=== PATIENT | female | born 1975 | race Caucasian/White ===

== ENCOUNTER → 2016-11-13 | Outpatient (CLI) | payer BC ==
--- NOTE | 2016-11-13 13:34 | MAMMOGRAPHY REPORT ---
THIS REPORT HAS BEEN AMENDED. BILATERAL DIGITAL SCREENING MAMMOGRAM TOMOSYNTHESIS WITH CAD: 11/13/2016 CLINICAL HISTORY: Routine screening. Patient has no complaints. TECHNIQUE: Bilateral breast tomosynthesis in addition to standard 2D mammography was performed. Curr ent study was also evaluated with a Computer Aided Detection (CAD) system. COMPARISON: No prior exams were available for comparison. BREAST COMPOSITION: The tissue of both breasts is heterogeneously dense, which may obscure small ma sses. FINDINGS: No suspicious mass, architectural distortion or cluster of microcalcifications is seen. IMPRESSION: ACR BI-RADS CATEGORY 1: NEGATIVE There is no mammographic evidence of malignancy. A 1 year screening mammogram is recommended. The p atient will receive written notification of the results. Approximately 10% of breast cancers are not detected with mammography. A negative mammographic repor t should not delay biopsy if a clinically suggestive mass is present. Concepcion Patterson M.D. ay/:11/13/2016 12:56:59 Booth Usher: Florence PETTY(Leonor)(M), [facility] letter sent: Normal 09/23 BI-RADS Code: ACR BI-RADS Category 1: Negative AMENDMENT: 11/20/2016 Concepcion Patterson M.D. A prior outside mammogram from [facility] [place] dated 04/18/2008 became available for review. There has been no significant interval change compared to the outside mammogram. No n ew suspicious mass, architectural distortion or new cluster of suspicious microcalcifications is see n. Recommend follow-up in 1 year for next annual screening mammogram. Amended BI-RADS: ACR BI-RADS Category 1: Negative letter sent: Normal 2
== END | disposition home or self-care (01) ==
LOC: C.MAMM 10:48
PROVIDERS: ATTEND Family Medicine
DX: Z12.31 Encounter for screening mammogram for malignant neoplasm of breast (principal)